=== PATIENT | male | born 1980 | race Caucasian/White ===

== ENCOUNTER 2023-09-17 22:38 | Emergency (ER) | payer BC, OTHER ==
[~2023-09-17] VITALS: Ht 175.3 cm; Wt 81.6 kg
[~2023-09-17 22:38] MED LIST: ASPI-1457 PO
[2023-09-17 22:45] VITALS: BP_SYST 141; PULSE 102; RESP 16; TEMP 97.9; O2SAT 95
[2023-09-17] MEDS ORDERED: METOCLOPRAMIDE HCL 10 MG/2 ML VIAL IVP ONE (23:00)
[2023-09-17 23:12] LABS: BASOPHILS # (AUTO) 0.1 K/uL (0.0-0.2); BASOPHILS % (AUTO) 1.2 % (0.0-2.0); EOSINOPHILS # (AUTO) 0.3 K/uL (0.0-0.4); EOSINOPHILS % (AUTO) 6.9 % (0.0-4.0); HEMATOCRIT 43.7 % (36-54); HEMOGLOBIN 14.8 g/dL (14.0-18.0); LYMPHOCYTES # (AUTO) 1.7 K/uL (1.0-5.5); LYMPHOCYTES % (AUTO) 33.6 % (20.5-51.5); MEAN CORPUSCULAR HEMOGLOBIN 29 pg (27-31); MEAN CORPUSCULAR HGB CONC 34 % (32-36); MEAN CORPUSCULAR VOLUME 85 fL (79.0-98.0); MONOCYTES % (AUTO) 19.3 % (1.7-9.3); NEUTROPHILS # (AUTO) 1.9 K/uL (1.8-7.7); PLATELET COUNT (AUTO) 275 K/uL (130-430); RED BLOOD CELL COUNT(AUTO) 5.14 MIL/uL (4.2-6.2); RED CELL DISTRIBUTION WIDTH 14.1 % (9.0-15.0)
[2023-09-17 23:26] LABS: CALCIUM 9.3 mg/dL (8.4-11.0); CREATININE 1.02 mg/dL (0.55-1.30); POTASSIUM 3.4 mmol/L (3.5-5.1)
[2023-09-17 23:30] LABS: ALBUMIN 3.5 g/dL (3.4-4.8); TOTAL BILIRUBIN 0.4 mg/dL (0.0-1.0); TOTAL PROTEIN, SERUM 7.9 g/dL (6.4-8.3)
[2023-09-17] MEDS ORDERED: METO-290 PO (23:57)
[2023-09-18 00:07] VITALS: BP_SYST 121; PULSE 84; RESP 14; TEMP 97.6; O2SAT 96
== END 2023-09-18 00:04 | disposition home or self-care (01) ==
LOC: SED 22:38
DX: J06.9 Acute upper respiratory infection, unspecified (principal); R06.6 Hiccough; Z79.899 Other long term (current) drug therapy
CPT/HCPCS: 99283; 96374; 80053; 85025; 36415; J2765